=== PATIENT | male | born 1980 | race Two or more races ===

== ENCOUNTER 2017-12-27 21:24 | Emergency (ER) | payer SELFPAY ==
[~2017-12-27] VITALS: Ht 172.7 cm; Wt 101.0 kg
[2017-12-27] MEDS ORDERED: FAMOTIDINE 20MG/2ML VIAL IV ONE (21:45)
[2017-12-27] MEDS ORDERED: EPINEPHRINE 1:1000 1 MG/ML AMP IM ONE (21:45)
[2017-12-27] MEDS ORDERED: METHYLPREDNISOLONE SOD SUCC 125 MG/2 ML VIAL IV ONE (21:45)
[2017-12-27] MEDS ORDERED: DIPHENHYDRAMINE 50MG/ML VIAL IV ONE (21:45)
[2017-12-27 23:00] LABS: BASOPHILS % 0.5 % (0.0-2.0); EOSINOPHILS % 3.2 % (0.0-5.0); HEMATOCRIT. 40.9 % (42.0-52.0); HEMOGLOBIN. 13.6 g/dL (14.0-18.0); MEAN CORPUSCULAR HEMOGLOBIN 29.4 pg (28.0-32.0); MEAN CORPUSCULAR VOLUME 88.5 fL (80.0-94.0); MEAN PLATELET VOLUME 8.1 fl (7.4-10.4); MONOCYTES % 9.6 % (2.0-8.0); NEUTROPHILS % 48.7 % (40.0-76.0); PLATELET 312 x1000/uL (130-400); RED BLOOD CELL COUNT 4.62 mill/uL (4.7-6.1); RED CELL DISTRIBUTION WIDTH 13.5 % (11.6-14.6)
[2017-12-27 23:05] LABS: CHLORIDE 105 mEq/L (98-107)
[2017-12-27] MEDS ORDERED: SODIUM CHLORIDE 0.9% 1,000 ML IV ONE (23:15)
[2017-12-27 23:30] VITALS: BP 133/87
== END 2017-12-28 01:37 | disposition home or self-care (01) ==
LOC: ER 21:24
DX: T78.02XA Anaphylactic reaction due to shellfish (crustaceans), initial encounter (principal); F12.10 Cannabis abuse, uncomplicated; Z91.013 Allergy to seafood; X58.XXXA Exposure to other specified factors, initial encounter
CPT/HCPCS: 36415; 71045; 80053; 85025; 96361; 96372; 96374; 96375; 99285; J1200; J2930; J3490; J7030